=== PATIENT | female | born 1985 | race African-American/Black ===

== ENCOUNTER 2017-12-30 05:30 | Day surgery (SDC) | payer OTHER ==
[~2017-12-30] VITALS: Ht 170.2 cm; Wt 112.0 kg
--- NOTE | ~2017-12-30 | O ---
[facility] [place] [address] OPERATIVE REPORT Name: ROSA CASTELLON Room #: [id number] Admission: 12/30/17 Attend Phys: Wisam Myrick MD Discharge: 12/30/17 Date of : 81 Report #: [id number] THIS REPORT FOR: //name// CC: GLENN physician/PCP Wisam Myrick DATE OF SERVICE: 12/30/2017 PREOPERATIVE DIAGNOSIS: Cervical intraepithelial neoplasia 2. POSTOPERATIVE DIAGNOSIS: Cervical intraepithelial neoplasia 2. SURGEON: Wisam Myrick MD. DIRECTOR CLINICAL APPLICATIONS: None. ANESTHESIA: General. PROCEDURE: Loop electrosurgical excision procedure; colposcopy of cervix. ESTIMATED BLOOD LOSS: 20 mL. DRAINS: None. SPECIMEN: 1. Cervical transformation zone 12 o'clock. 2. Cervical transformation zone 3 o'clock. 3. Cervical transformation zone 4 o'clock. 4. Cervical transformation zone 7 o'clock. 5. Endocervix. 6. Endocervical curettings. COMPLICATIONS: None. FINDINGS: Lugol's negative areas of the transformation of the cervix and transformation zone were identified. DESCRIPTION OF PROCEDURE: The patient was seen in the preoperative holding area and consent was obtained for surgery and postoperative course was reviewed. The patient was taken to the operating room, administered general anesthesia. She was placed in dorsal lithotomy position and an external prep was done with no internal prep. The laser speculum was too small to fit this particular vagina adequately, so a large metal speculum was used. The Bovie settings were set for 25 mojica of coag one setting and the other setting for a cutting was set at 25 mojica for pure blend. The colposcope was then used to observe the cervix. Lugol's solution was applied. Lugol's negative areas were identified. The [address] [place] [address] OPERATIVE REPORT Name: CANDEDIANAMATTHEW STEINBERG Room #: DEP [facility] Grazyna.Jose#: [id number] Admission: 12/30/17 Attend Phys: Wisam Myrick MD Discharge: 12/30/17 Date of : 81 Report #: [id number] electrode was used to vidhya out the periphery of the Lugol's negative area staying 3 mm lateral to the margins and 10 mL of 1% lidocaine with epinephrine was used to infiltrate the circumference of the proposed excision using a 25-gauge needle. After hemostasis was achieved, the colposcope was used to guide the loop electrosurgical excision procedure using the blend cutting setting. The 3 o'clock periphery was removed in the first specimen. The 4 o'clock periphery was removed in the second specimen. The 7 o'clock periphery was removed with third the specimen and a 12 o'clock periphery was removed for specimen. The electrode used was a 20 mm wide and 8 mm deep. The electrode was then used to scope out and ensure an 8 mm depth excision of the entire excavation point. A 15-mm wide electrode, which was also 8 mm deep was then used to excise the endocervix distally. An endocervical curette was then used to obtain scant curettings from the endocervix. The ball electrode was then used to help achieve the hemostasis with 25 mojica of power coagulation along with Monsel solution. Hemostasis was observed. All instruments and needle and pad counts were correct. The patient was brought out of general anesthesia and was taken to recovery room with IV infusing well. She is to be sent home from the PACU on the same day with instructions to follow up as an outpatient with Dr. Myrick in 1 week's time and to take prophylactic antibiotics as prescribed by Dr. Myrick in the form of metronidazole. <ELECTRONICALLY SIGNED> By: Wisam Myrick MD 01/12/18 1701 1242 1325 Wisam Myrick MD /nt
--- NOTE | ~2017-12-30 | H ---
[facility] [place] [address] HISTORY AND PHYSICAL Name: ROSA CASTELLON Room #: 150-2 [facility] M.R.#: [id number] Admission: 12/30/17 Attend Phys: Wisam Myrick MD Discharge: Date of : 81 Report #: [id number] THIS REPORT FOR: //name// CC: GLENN physician/PCP Wisam Myrick DATE OF SERVICE: 12/30/2017 HISTORY OF PRESENT ILLNESS: This patient is a 32-year-old female 5, para 4, AB 1. She is not having any menses on Nexplanon. She has a history of abnormal Pap smear, which led to a colposcopic evaluation of the cervix. Biopsies at colposcopy were positive for JAME 2 at the 1 o'clock and 11 o'clock positions of the transformation zone. Biopsies were negative at 6 o'clock and the endocervical curettings were also benign. The lesion did appear to extend into the distal portion of the endocervical canal. The patient had also tested positive for Trichomonas and bacterial vaginosis, both of which were treated with antibiotics, resulting in resolution of the discharge. She is now admitted for an outpatient loop electrosurgical excision procedure. ALLERGIES: PENICILLINS CAUSES ITCHING. MEDICATIONS: Ibuprofen 200 mg every 6 hours as needed for pain. PAST ILLNESSES AND DISEASES: Hypertension. PAST SURGICAL HISTORY: Colposcopy only. FAMILY HISTORY: Mother with asthma. Father with heart failure. Maternal grandmother with diabetes. Paternal grandmother with diabetes. SOCIAL HISTORY: The patient is an everyday smoker, 1/4 pack per day for 3 years. She drinks 1-2 drinks a week of alcohol. REVIEW OF SYSTEMS: Noncontributory except for general fatigue. She denies any sleep apnea. PHYSICAL EXAMINATION: VITAL SIGNS: Height 5 feet 7 inches tall, weight 250 pounds, body mass index is 39.16, temperature 98.8, blood pressure 130/70, heart rate 71. GENERAL: A pleasant female in no acute distress, obese. HEAD, EYES, EARS, NOSE AND THROAT: Within normal limits. HEART: Regular rhythm and rate. No murmurs. ABDOMEN: Soft, nontender, nondistended. Normal bowel sounds. LUNGS: Clear. SKIN: Normal. BACK: Normal. [address] [address] HISTORY AND PHYSICAL Name: ROSA CASTELLON Room #: [facility]2 [facility].Yasmin.#: [id number] Admission: 12/30/17 Attend Phys: Wisam Myrick MD Discharge: Date of : 81 Report #: [id number] NEUROLOGIC: Grossly intact. PSYCHIATRIC: Mood and affect are normal. BREASTS: No dominant masses. GYNECOLOGIC: Deferred to OR. EXTREMITIES: Nontender. IMPRESSION: Cervical intraepithelial neoplasia 2 of the cervix with a negative endocervical curettage, but the lesion did extend to the distal portion of the canal. PLAN: Loop electrosurgical excision procedure. <ELECTRONICALLY SIGNED> By: Wisam Myrick MD 12/30/17 0744 1815 1853 Wisam Myrick MD /nt
--- NOTE | ~2017-12-30 | PATH ---
[facility] [address] [place] [address] PATHOLOGY RPT PROCEDURE Name: ROSA JIMENEZ Room #: DEP [facility] M.R.#: [id number] Admission: 12/30/17 Date of : 81 Discharge: 12/30/17 Report #: [id number] Path Case #: [id number] [facility] Accession Number: [id number] . 01 Material submitted: . PART A: ENDOCERVICAL CURETTAGE PART B: CERVICAL TRANSFORMATION ZONE 12:00 PART C: CERVICAL TRANSFORMATION ZONE 3:00 PART D: CERVICAL TRANSFORMATION ZONE 4:00 PART E: CERVICAL TRANSFORMATION ZONE 7:00 . 01 Clinical history: . JAME II . 02 Diagnosis: A. "Endocervical curettage", curettage: - Benign endocervical epithelium admixed with mucus; no dyplasia seen. . B. "Cervical transformation zone 12:00", LEEP excision: - FOCAL HIGH-GRADE SQUAMOUS INTRAEPITHELIAL LESION (HSIL, MODERATE SQUAMOUS DYSPLASIA, JAME-II); FOCALLY PRESENT AT AN INKED SURGICAL MARGIN. (SEE COMMENT) . C. "Cervical transformation zone 3:00", LEEP EXCISION: - Ectocervical squamous mucosa and endocervical ductal mucosa with acute and chronic inflammation and squamous metaplasia; no dysplasia seen. . D. "Cervical transformation zone 4:00", LEEP EXCISION: - ECTOCERVICAL SQUAMOUS MUCOSA AND ENDOCERVICAL DUCTULAR MUCOSA WITH HIGH-GRADE SQUAMOUS INTRAEPITHELIAL LESION (HSIL, MODERATE SQUAMOUS DYSPLASIA JAME-II); MARGINS FREE OF HIGH-GRADE DYSPLASIA. (SEE COMMENT) . E. "Cervical transformation zone 7:00", LEEP EXCISION: - Ectocervical squamous mucosa and endocervical ductular mucosa with acute and chronic inflammation and squamous metaplasia; no dysplasia seen. (CLW:stephanie/at; 01/04/2018) QMS/01/05/2018 . 02 Comment: Properly controlled immunohistochemical stains are performed. . p16 (block B2): Highlights the focal moderate squamous dysplasia present at a surgical margin . p16 (block C1): No high-grade dysplasia seen . p16 (block D1): Highlights the focal moderate dysplasia, margins free [address] [address] PATHOLOGY RPT PROCEDURE Name: ROSA JIMENEZ Room #: DEP [facility] M.Jose#: [id number] Admission: 12/30/17 Date of : 81 Discharge: 12/30/17 Report #: [id number] Path Case #: [id number] . p16 (block E2): No high-grade dysplasia seen . . The patient has a history of "squamocolumnar junction showing changes of moderate dysplasia, JAME-II (high-grade squamous intraepithelial lesion)" present at cervix at 1:00 biopsy and "squamocolumnar junction showing changes of moderate dysplasia, JAME-II (high-grade squamous intraepithelial lesion)" from a cervix at 11:00 biopsy ([id number]). . (CLW:stephanie;/at 01/04/2018) . 02 Electronically signed: . Janna Dixon MD, Pathologist NPI- [id number] . 01 Gross description: . A. The specimen is received in formalin, labeled "Rosa Jimenez, endocervical curettings", is a ramirez mucoid material measuring 0.3 cm in greatest dimension, entirely submitted in A1. . B.The specimen is received in formalin, labeled "Rosa Jimenez, cervical transformation zone 12:00", is a hoff-white rubbery soft tissue measuring 2.2 x 1.2 x 0.7 cm. One surface is partially covered by a smooth ramirez-pink ectocervix. The specimen is inked black, serially sectioned and entirely submitted in B1-B2 with mucus in B3. . C.The specimen is received in formalin, labeled "Rosa Jimenez, cervical transformation zone 3:00", is a semi-lunar hoff-white rubbery soft tissue measuring 1.5 x 0.6 x 0.4 cm. One surface is covered by a smooth ramirez-pink ectocervix. The specimen is inked black, radially section and entirely submitted in C1. . D.The specimen is received in formalin, labeled "Rubi Jimeneza, cervical transformation zone 4:00", are two hoff-white rubbery soft tissues measuring 0.7 x 0.5 x 0.2 cm and 1.4 x 0.6 x 0.3 cm admixed with mucus. Both fragments are inked black, serially sectioned and entirely submitted in D1. . E. The specimen is received in formalin, labeled "Rubi Jimeneza, cervical transformation zone 7:00", is a hoff-white rubbery soft tissue measuring measuring 2.0 x 1.0 x 0.5 cm. One surface is covered by smooth ramirez-pink ectocervix. The specimen is inked black, serially sectioned and entirely submitted in E1-E2. (SWS; 12/30/2017) SHS/SHS . 02 Pathologist provided ICD-10: [address] [address] PATHOLOGY RPT PROCEDURE Name: ROSA JIMENEZ Room #: DEP [facility] M.Yasmin.#: [id number] Admission: 12/30/17 Date of : 81 Discharge: 12/30/17 Report #: [id number] Path Case #: [id number] N87.1, N72 . 02 CPT . 826968, [id number], [id number], [id number], [id number], [id number] Specimen Comment: A courtesy copy of this report has been sent to Specimen Comment: [phone]. Specimen Comment: Report sent to Performed at: [facility] [address] [id number] MD Matt Infante MD Phone: [phone] Performed at: 02 [facility] [address] [id number] MD Chad Agrawal MD Phone: [phone]
[~2017-12-30 05:30] MED LIST: IBUPROFEN 200200 M1 PO; ONE-A-DAY WOMENS PO
[2017-12-30 09:53] VITALS: BP 171/99
[2017-12-30] MEDS ORDERED: FLAGYL500 MG PO (12:49)
[2017-12-30] MEDS ORDERED: IBUPROFEN 200200 M1 PO (13:01)
[2017-12-30 13:11] VITALS: BP 171/99
[2017-12-30 13:13] VITALS: BP 171/99
== END 2017-12-30 13:37 | disposition home or self-care (01) ==
LOC: OR 05:30 → TBA 05:30 → OR 11:07
DX: N87.1 Moderate cervical dysplasia (principal); N72 Inflammatory disease of cervix uteri; I10 Essential (primary) hypertension; F17.210 Nicotine dependence, cigarettes, uncomplicated; Z79.899 Other long term (current) drug therapy; Z88.0 Allergy status to penicillin
CPT/HCPCS: 50010; 50101; 51732; 51782; 52058; 62110; 62900; 70005